=== PATIENT | male | born 1950 | race Caucasian/White ===

== ENCOUNTER 2018-09-03 06:49 | Emergency (ER) | payer MEDICARE ==
--- NOTE | 2018-09-03 07:09 | ED ---
Laceration/Wound HPI - HPI Summary HPI Summary: 68-year-old male presents for suture removal today. He states that he had his sutures placed last week. Denies any fevers or spreading redness. This area did bleed a little bit afterwards but then scabbed over. He denies any other symptoms. - History of Current Complaint Stated Complaint: NEED STITCHES REMOVED Time Seen by Provider: 09/03/18 07:02 Pain Intensity: 0 - Allergy/Home Medications Allergies/Adverse Reactions: Allergies Allergy/AdvReac Type Severity Reaction Status Date / Time STATINS Allergy Unknown Uncoded 09/03/18 07:18 Reaction Details PMH/Surg Hx/FS Hx/Imm Hx Endocrine/Hematology History: Denies: Hx Diabetes Cardiovascular History: Reports: Hx Hypertension Denies: Hx Pacemaker/ICD Respiratory History: Denies: Hx Asthma Sensory History: Denies: Hx Hearing Aid Psychiatric History: Denies: Hx Panic Disorder - Surgical History Surgery Procedure, Year, and Place: CARDIAC STENTS 2007; TONSILECTOMY Infectious Disease History: No Infectious Disease History: Denies: Traveled Outside the [place] in Last 30 Days - Family History Known Family History: Positive: Non-Contributory - Social History Alcohol Use: Daily Alcohol Amount: 2-3 beers at night Substance Use Type: Reports: None Smoking Status (MU): Never Smoked Tobacco Review of Systems Negative: Fever Negative: Chest Pain Negative: Shortness Of Breath Positive: Other - suture removal. Negative: Rash All Other Systems Reviewed And Are Negative: Yes Physical Exam Triage Information Reviewed: Yes Vital Signs On Initial Exam: Initial Vitals Temp Pulse Resp BP Pulse Ox 97.9 F 65 16 160/89 97 09/03/18 06:56 09/03/18 06:56 09/03/18 06:56 09/03/18 06:56 09/03/18 06:56 Vital Signs Reviewed: Yes Appearance: Positive: Well-Appearing Skin: Positive: Warm, Dry, Other - 4cm scabbed over area on forehead, no evidence of cellulitis or dehiscence Head/Face: Positive: Normal Head/Face Inspection Eyes: Positive: Normal, Conjunctiva Clear ENT: Positive: Pharynx normal Respiratory/Lung Sounds: Positive: Clear to Auscultation, Breath Sounds Present Cardiovascular: Positive: Normal, RRR Musculoskeletal: Positive: Normal Neurological: Positive: Normal Psychiatric: Positive: Normal Diagnostics - Vital Signs Vital Signs Temp Pulse Resp BP Pulse Ox 09/03/18 06:56 97.9 F 65 16 160/89 97 - Laboratory Lab Statement: Any lab studies that have been ordered have been reviewed, and results considered in the medical decision making process. Laceration Repair Course/Dx - Course Course Of Treatment: 68-year-old male presents for suture removal today. He states that he had his sutures placed last week. Denies any fevers or spreading redness. This area did bleed a little bit afterwards but then scabbed over. He denies any other symptoms. On exam has a scabbed over area on the forehead. Remove 5 sutures. Told to keep the area clean and dry. No evidence of infection at this time. Patient understands agrees with plan. - Differential Dx Differental Diagnoses: Abrasion, Avulsion, Laceration - Clinical Impression Provider Diagnoses: Visit for suture removal Discharge - Sign-Out/Discharge Documenting (check all that apply): Patient Departure Patient Received Moderate/Deep Sedation with Procedure: No - Discharge Plan Condition: Good Disposition: HOME Patient Education Materials: Stitches Removal (ED) Referrals: Neo Escobedo MD [Primary Care Provider] - Additional Instructions: wash area Apply sunscreen and lotion to area Return to ED if develop any signs of infection such as fever, spreading redness , or erythema or any new or worsening symptoms. - Billing Disposition and Condition Condition: GOOD Disposition: Home - Attestation Statements Provider Attestation: I was available for consult. This patient was seen by the [facility]. The patient was not presented to, seen by, or examined by me. -Alicja
[2018-09-03 07:33] VITALS: BP 151/85
== END 2018-09-03 07:32 | disposition home or self-care (01) ==
LOC: ED 06:49
DX: S01.81XD Laceration without foreign body of other part of head, subsequent encounter (principal); W45.8XXD Other foreign body or object entering through skin, subsequent encounter; I10 Essential (primary) hypertension
CPT/HCPCS: 99281